=== PATIENT | male | born 1940 | race Caucasian/White ===

== ENCOUNTER → 2018-06-12 14:02 | Outpatient (CLI) | payer MEDICARE, SELFPAY ==
--- NOTE | 2018-06-12 14:10 | RAD_ITS ---
STUDY: X-RAY - ABDOMEN/PELVIS REASON FOR EXAM: Male, 78 years old. Reported history of kidney stone TECHNIQUE: Two AP supine views of the abdomen and pelvis. COMPARISON: None. FINDINGS: There are fibrotic changes in the lung bases. There is an unremarkable bowel gas pattern. There is no demonstrated free abdominal air. Asymmetric density of the left kidney as compared to the right suggesting retained contrast, possibly from obstruction. In the left hemipelvis adjacent to the urinary bladder, there is a 4.9 mm density that could represent a left UVJ stone. There are degenerative changes of lumbosacral spine. Operative changes of the bilateral femurs. There are metallic implants of the prostate gland. Vascular calcifications are noted. Cholecystectomy clips noted. RAD/Abdomen Single View IMPRESSION: 1. Possible left UVJ calculus causing obstruction (residual/delayed left renal contrast excretion from prior CT). Correlation with prior CT is recommended. Electronically Signed: Edinson Giordano MD at 8:44 EDT , Service support ,
== END ==
PROVIDERS: Family Provider Preventive Medicine Occupational Medicine; PCP Preventive Medicine Occupational Medicine; Referring Provider Nurse Practitioner Adult Health; Visit Provider Nurse Practitioner Adult Health
DX: R31.9 Hematuria, unspecified (principal)
CPT/HCPCS: 74018

== ENCOUNTER 2022-10-06 19:34 | Inpatient (IN) | payer MEDICARE, SELFPAY ==
[2022-10-06 19:35] VITALS: BP 129/74; PULSE 108; RESP 20; TEMP 36.6; O2SAT 95; BMI 28.8
--- NOTE | 2022-10-06 19:44 | EKG12_ITS ---
Test Reason : CP Blood Pressure : / mmHG Vent. Rate : 105 BPM Atrial Rate : 105 BPM P-R Int : 210 ms QRS Dur : 090 ms QT Int : 340 ms P-R-T Axes : 054 -32 113 degrees QTc Int : 449 ms Sinus tachycardia with 1st degree A-V block Left axis deviation Left ventricular hypertrophy with repolarization abnormality ( R in aVL , Cesar product ) Cannot rule out Septal infarct , age undetermined Abnormal ECG Confirmed by CORINE RUIZ, KOJO ([id number]), editorial specialist BRITTNI BACON ([id number]) on 10/08/2022 1:15:15 PM Referred By: XOCHILT Confirmed By:KOJO POOL MD
--- NOTE | 2022-10-06 19:52 | ED.VIS.CHEST ---
HPI History of Present Illness Chief Complaint: Chest Pain Informant: patient Onset/Context/Timing Onset: Today (Episode at 5:30 PM at rest and early in the morning when he went outside) Activity at onset: sudden Timing: Intermittent (First episode lasted a minute or 2. Second episode lasted 1.5 hours) Quality: Positive for Pressure Location: Substernal Current Severity: Gone Maximum Severity: Moderate Worsened By: Not Worsened By Movement of Arm, Movement of Torso, Eating, Palpation, Breathing or Coughing Relieved By: Nothing Associated Symptoms: Positive for - (Radiation to the left upper extremity); Negative for Nausea, Vomiting, Diaphoresis, Dyspnea, Cough, Fever, Lightheadedness, Acid Reflux or Palpitations Narrative Narrative: Patient is a 82-year-old male with history of coronary disease status post two-vessel bypass surgery in 1982 and placement of stent 1990 who presents with chest discomfort that occurred when he walked outside in the cold air that lasted 1 to 2 minutes and an episode that occurred at rest that lasted 1.5 hours. Described as a pressure sensation. The second episode was associated with radiation to left upper extremity. He does have history of diabetes, hypertension, hypercholesterolemia. He never smoked. He states his dad smoked, however. Patient has essentially no records at [facility]. Records from [place] were obtained. He had an echocardiogram on January 10, 2022. There is no results documented. The travel insurance agent is Dr. Shakeel Aragon. Patient had an outpatient CT performed August 31, 2021. 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 Prior Similar Symptoms: Yes and With Prior Angina Recent Illness/Hospitalization: No CVD Risk Factors: Positive for Hypertension, Diabetes and Hypercholesterolemia; Negative for Family History 1' </=55 or Smoking PE Risk Factors: Negative for Recent Travel/Surgery, Recent Immobilization, Prior DVT or PE, Cancer or OCP + Smoking + >/=35 TAD Risk Factors: Positive for Hypertension; Negative for Marfan's Syndrome or Family History [facility] Medical History (Updated 10/06/22 @ 22:45 by Tanya Yang) Diabetes Diabetes type I Hypertension Kidney stones TIA (transient ischemic attack) Home Medications allopurinol 300 mg tablet 300 mg PO QHS 10/06/22 [History Last Taken Unknown] amiodarone 200 mg tablet 200 mg PO DAILY 10/06/22 [History Last Taken Unknown] amlodipine 10 mg tablet 10 mg PO DAILY 10/06/22 [History Last Taken Unknown] aspirin 81 mg capsule 81 mg PO DAILY 10/06/22 [History Last Taken Unknown] cinnamon bark 500 mg capsule (Cinnamon) 500 mg PO BID 10/06/22 [History Last Taken Unknown] coenzyme Q10 100 mg capsule (CoQ-10) 200 mg PO DAILY 10/06/22 [History Last Taken Unknown] empagliflozin 10 mg tablet (Jardiance) 10 mg PO DAILY 10/06/22 [History Last Taken Unknown] metoprolol succinate 25 mg tablet,extended release 24 hr 25 mg PO DAILY 10/06/22 [History Last Taken Unknown] multivitamin 1 tab PO DAILY 10/06/22 [History Last Taken Unknown] niacin 500 mg capsule 500 mg PO DAILY 10/06/22 [History Last Taken Unknown] omega-3 fatty acids 1,000 mg PO BID 10/06/22 [History Last Taken Unknown] red yeast rice 600 mg tablet 600 mg PO BID 10/06/22 [History Last Taken Unknown] spironolactone 50 mg tablet 50 mg PO DAILY 10/06/22 [History Last Taken Unknown] warfarin 4 mg tablet 4 mg PO QHS 10/06/22 [History Last Taken Unknown] Allergy/AdvReac Type Severity Reaction Status Date / Time prochlorperazine Allergy Upset Verified 10/06/22 19:44 [From Compazine] Stomach Surgical History (Updated 10/06/22 @ 22:45 by Tanya Yang) History of cholecystectomy History of coronary artery stent placement Hx of CABG Stented coronary artery Social History (Updated 10/06/22 @ 19:[address] Michel Recinos MD) household members: none Smoking Status: Never smoker substance use type: does not use ROS ROS ED Constitutional Constitutional ED: Denies chills, fever(s), subjective, sweats or weight loss Eyes Eyes: Reports none; Denies blurry vision or change in vision ENT ENT ED: Denies ear pain, rhinorrhea or sore throat Cardiovascular Cardiovascular: Reports as per HPI; Denies orthopnea or paroxysmal nocturnal dyspnea Respiratory/Chest Respiratory/Chest: Denies cough, dyspnea, dyspnea on exertion, orthopnea or paroxysmal nocturnal dyspnea Gastrointestinal Gastrointestinal: Denies abdominal pain, melena, nausea or vomiting Genitourinary Genitourinary ED: Denies dysuria or urinary frequency Musculoskeletal Musculoskeletal: Denies arthralgias, back pain, myalgias or neck pain Integumentary Denies rash Neurologic Neurologic: Denies headache(s), paresthesias or weakness Endocrine Endocrinology: Denies cold intolerance, heat intolerance, polydipsia or polyuria Hematologic/Lymphatic Hematologic/Lymphatic: Denies easy bleeding or easy bruising EXAM Physical Exam Const Vital Signs: 10/06/22 19:35 10/06/22 19:39 10/06/22 20:28 Temperature 97.8 F Temperature Source Temporal Pulse Rate 108 H Respiratory Rate 20 H Respiratory Effort Normal Blood Pressure 129/74 H Blood Pressure Mean 92 Pulse Ox 95 Oxygen Delivery Method Room Air Room Air 10/06/22 20:35 Temperature Temperature Source Pulse Rate 99 Respiratory Rate 17 Respiratory Effort Blood Pressure 119/75 Blood Pressure Mean 89 Pulse Ox 97 Oxygen Delivery Method Room Air Positive well nourished and well developed General Appearance ED: well developed and NAD; Negative for pallor HEENT Reports TM's clear and moist mucous membranes normocephalic and atraumatic Tympanic Membrane ED: Yes TM's clear Eyes PERRL and EOMs intact bilaterally General Eye ED: Negative for pale conjunctiva or scleral icterus Neck no lymphadenopathy, supple and no JVD Neck Narrative: No carotid bruit appreciated. Chest Wall inspection of chest normal and palpation of chest normal Resp normal respiratory effort and clear to auscultation bilaterally Cardio regular rate, regular rhythm, S1 normal heart sound and S2 normal heart sound; Negative for no murmurs Peripheral Pulses: pulses 2+ throughout GI normal to inspection, nondistended, normoactive bowel sounds, soft to palpation, non-tender, non-distended and no masses; Negative for hepatosplenomegaly GI Narrative: There is no pulsatile or palpable mass. There is no relief. Back/Spine no CVA tenderness Extremity Negative for normal to inspection Extremity Narrative: Venous stasis dermatitis with bilateral pitting edema and stigmata of PAD General Extremety ED: Yes edema General Extremity: edema Neuro oriented x3, CN's II-XII intact bilaterally and no sensory deficits noted Sensorium / Orientation: awake Psych mental status grossly normal Skin no rashes or lesions noted and no wounds General Skin Exam: Negative for jaundice or pallor Heart Score History: Moderately Suspicious ECG: Nonspecific Repolarization Age: >/= 65 years Risk Factors: >/= 3 Risk Factors or History of CAD Troponin: >1 - <3 Normal Limit Score: 7 MDM MDM MDM Narrative Medical decision making narrative: Patient presents with chest pain differential is cardiac versus noncardiac. Noncardiac would include biliary, esophagitis/gastritis, doubt pulmonary embolus since intermittent. This may also represent pulmonary disease. 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 And patient has known coronary disease with two-vessel bypass surgery and placement of stent in the remote past. Labs from outside facility were reviewed. Approximately 6 months ago his renal function was normal. Patient was treated with aspirin. Patient's heart score is 7. Lab Data Attestation: I reviewed the patient's lab results. Lab results narrative: Electrolyte panel is remarked for creatinine of 1.31 with a GFR 55. Blood sugar is 289 with a normal CO2 anion gap. First troponin is 131 which is abnormal. Second troponin is markedly elevated. Labs: Laboratory Results - last 24 hr 10/06/22 10/06/22 10/06/22 19:55 19:55 19:55 WBC 15.6 H RBC 4.28 L Hgb 13.9 Hct 40.2 MCV 93.9 MCH 32.5 H MCHC 34.6 RDW Std Deviation 59.0 H RDW Coeff of Aide 17.4 H Plt Count 185 MPV 11.0 Immature Gran % (Auto) 2.300 H Neut % (Auto) 89.1 H Lymph % (Auto) 3.2 L [place] % (Auto) 5.0 Eos % (Auto) 0.1 Baso % (Auto) 0.3 Absolute Neuts (auto) 13.9 H Absolute Lymphs (auto) 0.50 L Nucleated RBC % 0 Differential Comment SEE COMMENT Diff Path Review May foll Platelet Estimate ADEQUATE RBC Morphology N CHROM Anisocytosis RARE Macrocytosis RARE PT 22.5 H INR 2.0 Sodium 140 Potassium 3.8 Chloride 103 Carbon Dioxide 25.0 Anion Gap 12 BUN 26 H Creatinine 1.31 H Estim Creat Clear Calc 39.95 Est GFR (MDRD) Af Amer 67 Est GFR (MDRD) Non-Af 55 L BUN/Creatinine Ratio 19.8 Glucose 289 H Calcium 9.2 Troponin I High Sens 131 H* Radiography Chest X-Ray - ED: 1 View and Read by ED Physician (Single view portable chest x-ray reveals atelectasis left side. Cardiac size is within normal range. Perihilar regions unremarkable. There is no effusion. Osseous structures are unremarkable.) Diagnostic Testing: Clinical Impression(s) from Imaging Studies Chest X-Ray 10/06/22 20:09 IMPRESSION: Minimal left basilar airspace disease which may represent atelectasis or scar. Electronically Signed: Horacio Peterson MD at 20:26 EST , EKG Initial EKG: Attestation: I personally reviewed and interpreted this EKG as follows: Interpretation: Sinus Tachycardia (There is a first-degree AV block with OH interval 210 ms. Heart rate is 105. [place] to left. There is evidence of left ventricular hypertrophy. There is decreased anterior force. There is significant artifact. QRS durations 90 ms. QT duration 3 and 40 ms.) Critical Care Time Critical Care Time: Yes Critical care time (excluding procedures): 30-74 minutes (31), 75-104 minutes, Including time spent: (History, physical, documentation, review of prior records at [facility] and outside source), Discussing w/Patient &/or Family/Edger Machine Helper, Discussing w/Consultants and Arranging Admission or Transfer Discharge Plan Dx/Rx/DC Orders Clinical Impression: Non-ST elevated myocardial infarction, Sensation of chest pressure, Hypercholesterolemia, Elevated troponin I level, History of type 2 diabetes mellitus, History of hypertension, Acute renal insufficiency Disposition Disposition: Acute Care Hospital [facility] Discharge Date/Time: 10/06/22 22:00
[2022-10-06 20:08] LABS: Absolute Neutrophil Count 13.9 X10^3/uL (2.0-7.7); Basophil# 0.04 X10^3/uL; Basophil% 0.3 % (0-1); Eosinophil# 0.01 X10^3/uL; Eosinophils% 0.1 % (0-5); Hematocrit 40.2 % (40-54); Hemoglobin 13.9 g/dL (13.0-16.5); Lymphocyte % 3.2 % (19-41); Mean Corp Hgb Conc 34.6 g/dL (32-36); Mean Corpuscular Hgb 32.5 pg (27.0-32.0); Mean Corpuscular Volume 93.9 fL (80-94); Monocyte# 0.78 X10^3/uL; NRBC Flagged by Analyzer 0 % (0-5); Neutrophil # 13.87 X10^3/uL (2.7-7.7); Neutrophil % 89.1 % (47-70); POSITIVE DIFFERENTIAL YES; Platelet Count 185 K/mm3 (150-450); RBC Distribution Width CV 17.4 % (11.6-14.6); Red Blood Count 4.28 M/mm3 (4.6-6.2); White Blood Count 15.6 K/mm3 (4.4-11.0)
--- NOTE | 2022-10-06 20:09 | RAD_ITS ---
EXAM: XR CHEST, 1 VIEW CLINICAL INDICATION: chest pain TECHNIQUE: Frontal view of the chest. This report was created using [employer] report generation technology. COMPARISON: None. FINDINGS: LUNGS AND PLEURAL SPACES: There is minimal left basilar airspace disease. No pneumothorax. No effusion. HEART: Unremarkable. Cardiac silhouette not enlarged. MEDIASTINUM: Central airways and mediastinal contour are unremarkable. BONES/JOINTS: Median sternotomy wires are present. SOFT TISSUES: Unremarkable. RAD/Chest 1 View (Portable) IMPRESSION: Minimal left basilar airspace disease which may represent atelectasis or scar. Electronically Signed: Horacio Peterson MD at 20:26 EST ,
[2022-10-06 20:25] LABS: Anion Gap 12 (5-15); BUN 26 mg/dL (7-18); BUN/Creat Ratio 19.8 RATIO (10-20); Calcium,Total 9.2 mg/dL (8.5-10.1); Chloride 103 mmol/L (98-107); Creatinine, Serum 1.31 mg/dL (0.70-1.30); EST Glomerular Filtration Rate 55 mL/min (>60); Est Glom Filt Rate - Afr Amer 67 mL/min (>60); Estimated Creatinine Clearance 39.95 ml/min; Glucose 289 mg/dL (74-106); Potassium 3.8 mmol/L (3.5-5.1); Sodium Level 140 mmol/L (136-145); Troponin-I HS (w/2H Reflex) 131 pg/mL (3.0-78.0)
[2022-10-06] MEDS: Aspirin 81 MG TAB.CHEW 324 MG PO (20:30)
[2022-10-06 20:35] VITALS: BP 119/75; PULSE 99; RESP 17; O2SAT 97
--- NOTE | 2022-10-06 20:45 | ED.RN ---
[phone] RAKEL IMMEL FAMILY FRIEND CALL IN NEED ANYTHING
[2022-10-06 20:47] LABS: Differential Indicated SCAN CRITERIA MET
[2022-10-06 20:48] LABS: Platelet Estimate ADEQUATE (ADEQ)
--- NOTE | 2022-10-06 20:48 | PCM.HP.STD ---
[facility] - General General Date of Admission: 10/06/22 Date of Service: 10/06/22 Chief Complaint: Chest pain - 1 day HPI Narrative HARMONY GORMAN, is a 82 M who presents with the above. Patient has past medical history of 2-vessel CABG in 1982, follows with cardiology in [facility], type II DM, hyperlipidemia, paroxysmal atrial fibrillation, on Coumadin. Patient was in his usual state of health until about 5:30 PM on the day of admission when he had left substernal chest pain that was dull and radiated to his left arm. This lasted for an hour and half. He denied any nausea or vomiting or diaphoresis. He came to the emergency room at the urging of his friend. Initial vitals in the ED showed BP 129/74, heart rate 108, RR 20, Temp 97.8F, oxygen sat 95% on room air. WBC 15.6, with neutrophilia, hemoglobin 13.9, platelet count 185. INR is 2.0. Sodium 140, potassium 3.8, chloride 103, bicarbonate 25, BUN 26, creatinine 1.31, no previous to compare, glucose 289, initial troponin was 131 --->1614. Chest x-ray shows minimal left basilar airspace disease with pleural patient atelectasis or scarring. EKG showed normal sinus rhythm with T wave inversions in 1 and aVL, slight 2 mm elevation in V1-v2, v3. Patient denies any chest pain at the time of being seen [facility] Medical History Diabetes Diabetes type I Hypertension Kidney stones TIA (transient ischemic attack) Home Medications allopurinol 300 mg tablet 300 mg PO QHS 10/06/22 [History Last Taken Unknown] amlodipine 10 mg tablet 10 mg PO DAILY 10/06/22 [History Last Taken Unknown] aspirin 81 mg capsule 81 mg PO DAILY 10/06/22 [History Last Taken Unknown] cinnamon bark 500 mg capsule (Cinnamon) 500 mg PO BID 10/06/22 [History Last Taken Unknown] coenzyme Q10 100 mg capsule (CoQ-10) 200 mg PO DAILY 10/06/22 [History Last Taken Unknown] empagliflozin 10 mg tablet (Jardiance) 10 mg PO DAILY 10/06/22 [History Last Taken Unknown] metoprolol succinate 25 mg tablet,extended release 24 hr 25 mg PO DAILY 10/06/22 [History Last Taken Unknown] multivitamin 1 tab PO DAILY 10/06/22 [History Last Taken Unknown] niacin 500 mg capsule 500 mg PO DAILY 10/06/22 [History Last Taken Unknown] omega-3 fatty acids 1,000 mg PO BID 10/06/22 [History Last Taken Unknown] red yeast rice 600 mg tablet 600 mg PO BID 10/06/22 [History Last Taken Unknown] spironolactone 50 mg tablet 50 mg PO DAILY 10/06/22 [History Last Taken Unknown] warfarin 4 mg tablet 4 mg PO QHS 10/06/22 [History Last Taken Unknown] Allergy/AdvReac Type Severity Reaction Status Date / Time prochlorperazine Allergy Upset Verified 10/06/22 19:44 [From Compazine] Stomach Family History (Updated 10/07/22 @ 00:[address] Cris Gimenez MD) Mother Heart disease Father Arthritis Surgical History (Updated 10/07/22 @ 00:[address] Cris Gimenez MD) H/O lumpectomy History of cholecystectomy History of coronary artery stent placement Hx of CABG Status post hip hemiarthroplasty Stented coronary artery Social History (Updated 10/07/22 @ 00:[address] Cris Gimenez MD) household members: spouse and none Smoking Status: Never smoker alcohol intake: never substance use type: does not use ROS ROS Narrative Constitutional: Denies: Anorexia, Chills, Fever, Night Sweats, Weight Change Eyes: Denies: Blurred vision, Cataracts, Conjunctivae Inflammation, Pain, Redness, Vision Change HEENT: Denies: Difficulty Hearing, Difficulty Swallowing, Head Aches, Hearing Changes, Sinus Congestion, Sinus Drainage Cardiovascular: See HPI Respiratory: Denies: Cough, Shortness of breath at rest, Sputum production Gastrointestinal: Denies: Abdominal Pain, Nausea, Vomiting Genitourinary: Denies: Dysuria Musculoskeletal: Denies: Joint Pain, Joint stiffness, Joint swelling, Joint Tenderness Skin: Denies: Rash, Wounds Neurological: Denies: Numbness, Tingling, Focal weakness Vital Signs Vital Signs Vital Signs: 10/06/22 19:35 10/06/22 19:39 10/06/22 20:28 Temperature 97.8 F Temperature Source Temporal Pulse Rate 108 H Respiratory Rate 20 H Respiratory Effort Normal Blood Pressure 129/74 H Blood Pressure Mean 92 Pulse Ox 95 Oxygen Delivery Method Room Air Room Air 10/06/22 20:35 Temperature Temperature Source Pulse Rate 99 Respiratory Rate 17 Respiratory Effort Blood Pressure 119/75 Blood Pressure Mean 89 Pulse Ox 97 Oxygen Delivery Method Room Air Weight Weight: 83.5 kg Body Mass Index (BMI) 28.8 Physical Exam Narrative Physical exam: General: Alert, Oriented x3, Cooperative HEENT: Atraumatic Oral: Moist Mucosa Neck: Supple Lungs: Clear to auscultation Cardiovascular: HS I+II, regular, no murmurs Abdomen: Bowel Sounds Present, Soft, Non Tender Extremities: Bilateral pedal edema +1, left leg chronic with chronic venous stasis and scaling on the skin Skin: No rashes, No breakdown Neurological: Grossly intact Psych/Mental Status: Appropriate Results Lab / Micro Data Result Diagrams: 10/06/22 19:55 10/06/22 19:55 Labs: Laboratory Results - last 24 hr 10/06/22 19:55: WBC 15.6 H, RBC 4.28 L, Hgb 13.9, Hct 40.2, MCV 93.9, MCH 32.5 H, MCHC 34.6, RDW Std Deviation 59.0 H, RDW Coeff of Aide 17.4 H, Plt Count 185, MPV 11.0, Immature Gran % (Auto) 2.300 H, Neut % (Auto) 89.1 H, Lymph % (Auto) 3.2 L, [place] % (Auto) 5.0, Eos % (Auto) 0.1, Baso % (Auto) 0.3, Absolute Neuts (auto) 13.9 H, Absolute Lymphs (auto) 0.50 L, Nucleated RBC % 0 10/06/22 19:55: Sodium 140, Potassium 3.8, Chloride 103, Carbon Dioxide 25.0, Anion Gap 12, BUN 26 H, Creatinine 1.31 H, Estim Creat Clear Calc 39.95, Est GFR (MDRD) Af Amer 67, Est GFR (MDRD) Non-Af 55 L, BUN/Creatinine Ratio 19.8, Glucose 289 H, Calcium 9.2, Troponin I High Sens 131 H* Radiology Impression Chest X-Ray 10/06/22 20:09 IMPRESSION: Minimal left basilar airspace disease which may represent atelectasis or scar. Electronically Signed: Horacio Peterson MD at 20:26 EST , Assessment & Plan Assessment/Plan (1) Non-ST elevated myocardial infarction (non-STEMI): PLAN: Plan 1. Acute non-STEMI in a patient with history of CAD status post CABG, status post stent Admitting troponin went from 131?> 1614 Started on heparin drip, admit to PCU, monitor on telemetry, cardiology consult 2D echo, trend troponins, continue aspirin, statin, metoprolol 2. Paroxysmal atrial fibrillation, in normal sinus rhythm, INR is 2.0 Hold Coumadin, continue metoprolol 3. Type II DM, on metformin and Jardiance, will hold both Continue with blood glucose checks with insulin sliding scale 4. Hypertension, controlled, continue on metoprolol, amlodipine Hold spironolactone 5. DVT PPx- Heparin drip I discussed and explained in details the various types of CODE STATUS-full code, DNR CCA, DNR CC. Patient chose to be DNR-CCA, no intubation. Time spent discussing CODE STATUS 16 minutes Charges/Coding Visit Charges Inpatient E&M: 34204 Init Hosp L3 Procedures Hospitalists Procedures: 91854 Advncd Care Plan 30 Min
[2022-10-06 20:49] LABS: Anisocytosis RARE; Macrocytosis RARE; Red Cell Morphology N CHROM NORMAL (NORM C&C)
[2022-10-06 21:02] VITALS: BP 118/76; PULSE 99; RESP 18; TEMP 36.8; O2SAT 96
[2022-10-06 22:02] LABS: Reflex Troponin-HS? (from REC) Y
[2022-10-06 22:15] VITALS: BMI 27.5
[2022-10-06 22:24] VITALS: BP 129/88; PULSE 100; RESP 16; TEMP 36.9; O2SAT 95
[2022-10-06 23:04] LABS: Troponin-I HS 1614 pg/mL (3.0-78.0)
[2022-10-06 23:25] LABS: Prothrombin Time (Protime)PT. 22.5 SECONDS (11.7-14.9)
[2022-10-06 23:39] LABS: Partial Thromboplast Time 47.2 Seconds (24.1-36.2)
[2022-10-06] MEDS: HEPARIN/D5w 25,000 UNITS 25,000 UNITS/250 ML IV.SOLN. 9 UNITS CONT INF (23:48)
[2022-10-07 00:01] LABS: AST(SGOT) 25 U/L (15-37); Alanine Aminotransfer ALT/SGPT 15 U/L (16-61); Albumin, Serum 3.5 g/dL (3.2-5.0); Alkaline Phosphatase 81 U/L (45-117); Bilirubin, Direct 0.07 mg/dL (0.00-0.30); Protein, Total 7.5 g/dL (6.4-8.2)
--- NOTE | 2022-10-07 00:04 | ECHOD_ITS ---
Reason For Study: CHEST PAIN Procedure This was a 2D Doppler, Color Flow transthoracic echocardiogram. Exam performed portable in patient room. Left Ventricle Normal LV size. The estimated ejection fraction is 60 %. No evidence for diastolic dysfunction. No regional wall motion abnormalities noted. Right Ventricle Normal RV size. Normal systolic function. Atria Normal left atrium. Normal right atrium. No doppler evidence for ASD. Mitral Valve There is mild to moderate mitral annular calcification. Posterior leaflet mitral valve prolapse. There is no mitral valve stenosis. Trivial mitral valve insufficiency. Tricuspid Valve There is no tricuspid stenosis. Trivial tricuspid valve insufficiency. Unable to estimate RV systolic pressure due to insufficient tricuspid regurgitant envelope. Aortic Valve Moderate diffuse aortic valve thickening. Mild aortic stenosis. Trivial aortic valve insufficiency. Pulmonic Valve There is no pulmonic valvular stenosis. Trivial pulmonic valve insufficiency. Great Vessels Normal aortic root. Pericardium/Pleural No pericardial effusion. MMode/2D Measurements & Calculations LVIDd: 4.2 cm IVSd: 0.83 cm LVOT diam: 2.0 cm LVIDs: 2.9 cm LVPWd: 0.74 cm LVOT area: 3.3 cm2 RVDd: 4.1 cm FS: 31.3 % Ao root diam: 3.5 cm LAV(MOD-bp): 50.2 ml LVAd ap4: 32.8 cm2 LAV(MOD-bp) Indexed: 26.2 ml/m2 LVLd ap4: 8.5 cm LAV(MOD-sp2): 47.0 ml EDV(MOD-sp4): 103.2 ml LAV(MOD-sp4): 49.2 ml EDV(sp4-el): 107.9 ml LVAs ap4: 16.4 cm2 LVLs ap4: 7.1 cm ESV(MOD-sp4): 31.6 ml ESV(sp4-el): 32.5 ml EF(MOD-sp4): 69.4 % EF(sp4-el): 69.9 % SV(MOD-sp4): 71.6 ml SV(sp4-el): 75.4 ml LA A4 area: 19.4 cm2 LA dimension(2D): 4.1 cm RA A4 area: 16.8 cm2 Time Measurements MV dec time: 0.19 sec Doppler Measurements & Calculations MV E max eros: 55.8 cm/sec Lat Peak E' Eros: 9.1 cm/sec Med Peak E' Eros: 5.7 cm/sec MV A max eros: 90.2 cm/sec E/E' lat: 6.2 E/E' med: 9.8 MV E/A: 0.62 Ao V2 max: 263.6 cm/sec LV V1 max: 89.0 cm/sec SV(LVOT): 64.0 ml Ao max P.8 mmHg LV V1 max P.2 mmHg Ao V2 mean: 191.5 cm/sec LV V1 mean P.9 mmHg Ao mean P.2 mmHg LV V1 mean: 66.2 cm/sec Ao V2 VTI: 57.3 cm LV V1 VTI: 19.7 cm AV (velocity ratio): 0.34 NALINI(I,D): 1.1 cm2 NALINI(V,D): 1.1 cm2 PA V2 max: 84.8 cm/sec TR max eros: 251.7 cm/sec TR max P.4 mmHg ECHO/Echo Complete Interpretation Summary The estimated ejection fraction is 60 %. No evidence for diastolic dysfunction. Trivial mitral valve insufficiency. Moderate diffuse aortic valve thickening. Mild aortic stenosis. Trivial aortic valve insufficiency. Ordering Physician: Cris Gimenez Referring Physician: CARIN ENRIQUEZ Performed By: Taniya Graham RDCS
--- NOTE | 2022-10-07 00:08 | EKG12_ITS ---
Test Reason : AM EKG Blood Pressure : / mmHG Vent. Rate : 070 BPM Atrial Rate : 070 BPM P-R Int : 178 ms QRS Dur : 102 ms QT Int : 384 ms P-R-T Axes : 053 -31 085 degrees QTc Int : 414 ms Normal sinus rhythm Left axis deviation Left ventricular hypertrophy with repolarization abnormality ( R in aVL , [place] product ) Cannot rule out Septal infarct , age undetermined Abnormal ECG When compared with ECG of 06-OCT-2022 22:38, MANUAL COMPARISON REQUIRED, DATA IS UNCONFIRMED Confirmed by CORINE RUIZ, KOJO ([id number]), clinical editor BRITTNI BACON ([id number]) on 10/09/2022 9:05:20 AM Referred By: Confirmed By:KOJO POOL MD
[2022-10-07 03:00] VITALS: BP 137/86; PULSE 80; RESP 18; TEMP 36.6; O2SAT 94
[2022-10-07 03:05] LABS: Troponin-I HS 4464 pg/mL (3.0-78.0)
[2022-10-07 06:18] LABS: Absolute Lymphocyte Count 0.76 X10^3/uL (0.83-4.51); Absolute Neutrophil Count 13.1 X10^3/uL (2.0-7.7); Basophil# 0.04 X10^3/uL; Basophil% 0.3 % (0-1); Hematocrit 39.7 % (40-54); Hemoglobin 13.5 g/dL (13.0-16.5); Lymphocyte # 0.76 X10^3/ul (0.83-4.51); Mean Corpuscular Hgb 32.5 pg (27.0-32.0); Mean Corpuscular Volume 95.7 fL (80-94); Mean Platelet Vol. 11.5 fl (6.2-12.0); Monocyte# 0.91 X10^3/uL; NRBC Flagged by Analyzer 0 % (0-5); Neutrophil % 86.4 % (47-70); Platelet Count 191 K/mm3 (150-450); RBC Distribution Width CV 17.2 % (11.6-14.6); RBC Distribution Width SD 60.3 fl (35.1-43.9); Red Blood Count 4.15 M/mm3 (4.6-6.2); White Blood Count 15.2 K/mm3 (4.4-11.0)
[2022-10-07 06:53] LABS: Prothrombin Time (Protime)PT. 22.2 SECONDS (11.7-14.9)
[2022-10-07 06:55] LABS: Partial Thromboplast Time 60.4 Seconds (24.1-36.2)
[2022-10-07 07:00] LABS: ALB/GLOB Ratio 0.9 RATIO (0.9-2.4); AST(SGOT) 37 U/L (15-37); Alanine Aminotransfer ALT/SGPT 18 U/L (16-61); Albumin, Serum 3.3 g/dL (3.2-5.0); Alkaline Phosphatase 77 U/L (45-117); Anion Gap 8 (5-15); BUN 24 mg/dL (7-18); BUN/Creat Ratio 30.2 RATIO (10-20); Calcium,Total 8.7 mg/dL (8.5-10.1); Chloride 104 mmol/L (98-107); EST Glomerular Filtration Rate 99 mL/min (>60); Est Glom Filt Rate - Afr Amer 119 mL/min (>60); Estimated Creatinine Clearance 65.41 ml/min; Globulin 3.8 g/dL (2.2-4.2); Glucose 159 mg/dL (74-106); Potassium 3.8 mmol/L (3.5-5.1); Protein, Total 7.1 g/dL (6.4-8.2); Sodium Level 138 mmol/L (136-145)
[2022-10-07 08:07] VITALS: BP 131/79; PULSE 84; RESP 18; TEMP 36.9; O2SAT 96
[2022-10-07] MEDS: Multivitamins,Therapeutic Tablet 1 TABLET PO (08:11)
[2022-10-07] MEDS: Aspirin 81 MG TAB.CHEW PO (08:12)
[2022-10-07 09:00] VITALS: BP 107/76; PULSE 100; RESP 16; TEMP 36.8; O2SAT 96
--- NOTE | 2022-10-07 09:48 | PN.HOSP_ITS ---
Subjective Subjective Doing well, chest pain has resolved. No issues overnight Objective Data Objective Data Vital Signs: Vital Signs Temp Pulse Resp BP Pulse Ox O2 Del Method 98.4 F 84 18 131/79 H 96 Room Air 10/07/22 08:07 10/07/22 08:07 10/07/22 08:07 10/07/22 08:07 10/07/22 08:07 10/07/22 08:07 Oxygen Delivery Method Room Air Weight: 175 lb 14.862 oz Body Mass Index (BMI) 27.5 Lab / Micro Data Result Diagrams: 10/07/22 05:50 10/07/22 05:50 Labs: Laboratory Results - last 24 hr 10/06/22 19:55: WBC 15.6 H, RBC 4.28 L, Hgb 13.9, Hct 40.2, MCV 93.9, MCH 32.5 H , MCHC 34.6, RDW Std Deviation 59.0 H, RDW Coeff of Aide 17.4 H, Plt Count 185, MPV 11.0, Immature Gran % (Auto) 2.300 H, Neut % (Auto) 89.1 H, Lymph % (Auto) 3.2 L, [place] % (Auto) 5.0, Eos % (Auto) 0.1, Baso % (Auto) 0.3, Absolute Neuts (auto) 13.9 H, Absolute Lymphs (auto) 0.50 L, Nucleated RBC % 0, Differential Comment SEE COMMENT, Diff Path Review May foll, Platelet Estimate ADEQUATE, RBC Morphology N CHROM, Anisocytosis RARE, Macrocytosis RARE 10/06/22 19:55: Sodium 140, Potassium 3.8, Chloride 103, Carbon Dioxide 25.0, Anion Gap 12, BUN 26 H, Creatinine 1.31 H, Estim Creat Clear Calc 39.95, Est GFR (MDRD) Af Amer 67, Est GFR (MDRD) Non-Af 55 L, BUN/Creatinine Ratio 19.8, Glucose 289 H, Calcium 9.2, Troponin I High Sens 131 H* 10/06/22 19:55: PT 22.5 H, INR 2.0, APTT 47.2 H 10/06/22 19:55: B-Natriuretic Peptide 62.0 10/06/22 22:23: Troponin I High Sens 1614 H* 10/06/22 22:23: Total Bilirubin 0.20, Direct Bilirubin 0.07, AST 25, ALT 15 L, Alkaline Phosphatase 81, Total Protein 7.5, Albumin 3.5, Globulin 4.0 10/07/22 02:07: Troponin I High Sens 4464 H* 10/07/22 05:50: WBC 15.2 H, RBC 4.15 L, Hgb 13.5, Hct 39.7 L, MCV 95.7 H, MCH 32.5 H, MCHC 34.0, RDW Std Deviation 60.3 H, RDW Coeff of Aide 17.2 H, Plt Count 191, MPV 11.5, Immature Gran % (Auto) 2.300 H, Neut % (Auto) 86.4 H, Lymph % (Auto) 5.0 L, [place] % (Auto) 6.0, Eos % (Auto) 0.0, Baso % (Auto) 0.3, Absolute Neuts (auto) 13.1 H, Absolute Lymphs (auto) 0.76 L, Nucleated RBC % 0 10/07/22 05:50: Sodium 138, Potassium 3.8, Chloride 104, Carbon Dioxide 26.0, A nion Gap 8, BUN 24 H, Creatinine 0.80, Estim Creat Clear Calc 65.41, Est GFR (MDRD) Af Amer 119, Est GFR (MDRD) Non-Af 99, BUN/Creatinine Ratio 30.2 H, Glucose 159 H, Calcium 8.7, Total Bilirubin 0.30, AST 37, ALT 18, Alkaline Phos phatase 77, Total Protein 7.1, Albumin 3.3, Globulin 3.8, Albumin/Globulin Ratio 0.9 10/07/22 05:50: PT 22.2 H, INR 2.0, APTT 60.4 H Radiography Diagnostic Testing: Radiology Impression Chest X-Ray 10/06/22 20:09 IMPRESSION: Minimal left basilar airspace disease which may represent atelectasis or scar. Electronically Signed: Horacio Peterson MD at 20:26 EST , Physical Exam Narrative General: Alert, Oriented x3, Cooperative, No apparent distress HEENT: Atraumatic, PERRLA, EOMI, Normocephalic Oral: Moist Mucosa Neck: Supple, No JVD Lungs: Clear to auscultation, Normal air movement, No rhonchi, No wheeze, No rales Cardiovascular: Regular rate, Regular Rhythm, Normal S1, Normal S2, No murmurs Abdomen: Soft, Non Tender, Non-Distended, No Hepato-splenomegaly Extremities: Edema, Capillary Refill Less than 3 Seconds Skin: No rashes, No breakdown, left leg with chronic venous stasis Musculoskeletal: No Tenderness to Palpation of Joints or Extremities Neurological: Cranial nerves II-XII grossly intact, Motor Exam 5/5 strength throughout, Sensory exam intact to light touch and pain Psych/Mental Status: Normal Affect, Appropriate Assessment & Plan Assessment/Plan (1) Non-ST elevated myocardial infarction (non-STEMI): PLAN: Plan 1. Acute non-STEMI in a patient with history of CAD status post CABG and stent/A-fib/HTN HLD Admitting troponin went from 131?> 1614 Started on heparin drip, admit to PCU, monitor on telemetry, cardiology consult 2D echo, trend troponins, continue aspirin, statin, metoprolol We will hold Coumadin given potential for cardiac cath Hold Aldactone 2. DM2 We will hold metformin and Jardiance We will continue with insulin Accu-Cheks ACHS We will make adjustments as necessary DVT: Heparin drip Charges/Coding Visit Charges Inpatient E&M: 39528 Subs Hosp L2
[2022-10-07] MEDS: Empagliflozin 10 MG Tablet PO (10:38)
[2022-10-07 10:41] VITALS: BP 118/72; PULSE 90
[2022-10-07] MEDS: amLODIPine 10 MG Tablet PO (10:41)
[2022-10-07] MEDS: Metoprolol(XL)Succ 25 MG Tablet PO (10:41)
[2022-10-07] MEDS: 0.9% Saline Lock 10 ML Syringe IV (10:45)
--- NOTE | 2022-10-07 11:39 | PCM.CONS.C ---
Assessment & Plan Assessment/Plan (1) Non-ST elevated myocardial infarction (non-STEMI): PLAN: Agree with current management. We will also recommend adding Plavix. Coronary angiography tomorrow. Risks and benefits discussed with the patient. Patient is willing to proceed. HPI Consult Data Date of Consult: 10/07/22 HPI Narrative Reason for Consultation: Non-STEMI HPI Narrative: HARMONY GORMAN, is a 82 M who presents with retrosternal pressure-like chest pain that has since resolved. Patient has been admitted to the PCU for further management. He was found to have elevated troponin with the most recent 1 around 4400. Patient has history of coronary artery disease status post CABG in 1982 (two-vessel CABG) he apparently had a stent 8 years later. Patient follows with Dr. Aragon at [facility]. Review of systems: All systems reviewed. All system negative except that in HPI [facility] Medical History Diabetes Diabetes type I Hypertension Kidney stones TIA (transient ischemic attack) Home Medications allopurinol 300 mg tablet 300 mg PO QHS 10/06/22 [History Last Taken Unknown] amlodipine 10 mg tablet 10 mg PO DAILY 10/06/22 [History Last Taken Unknown] aspirin 81 mg capsule 81 mg PO DAILY 10/06/22 [History Last Taken Unknown] cinnamon bark 500 mg capsule (Cinnamon) 500 mg PO BID 10/06/22 [History Last Taken Unknown] coenzyme Q10 100 mg capsule (CoQ-10) 200 mg PO DAILY 10/06/22 [History Last Taken Unknown] empagliflozin 10 mg tablet (Jardiance) 10 mg PO DAILY 10/06/22 [History Last Taken Unknown] metoprolol succinate 25 mg tablet,extended release 24 hr 25 mg PO DAILY 10/06/22 [History Last Taken Unknown] multivitamin 1 tab PO DAILY 10/06/22 [History Last Taken Unknown] niacin 500 mg capsule 500 mg PO DAILY 10/06/22 [History Last Taken Unknown] omega-3 fatty acids 1,000 mg PO BID 10/06/22 [History Last Taken Unknown] red yeast rice 600 mg tablet 600 mg PO BID 10/06/22 [History Last Taken Unknown] spironolactone 50 mg tablet 50 mg PO DAILY 10/06/22 [History Last Taken Unknown] warfarin 4 mg tablet 4 mg PO QHS 10/06/22 [History Last Taken Unknown] Allergy/AdvReac Type Severity Reaction Status Date / Time prochlorperazine Allergy Upset Verified 10/06/22 19:44 [From Compazine] Stomach Family History (Updated 10/07/22 @ 00:[address] Cris Gimenez MD) Mother Heart disease Father Arthritis Surgical History (Updated 10/07/22 @ 00:[address] Cris Gimenez MD) H/O lumpectomy History of cholecystectomy History of coronary artery stent placement Hx of CABG Status post hip hemiarthroplasty Stented coronary artery Social History (Updated 10/07/22 @ 00:[address] Cris Gimenez MD) household members: spouse and none Smoking Status: Never smoker alcohol intake: never substance use type: does not use Physical Exam Const alert and oriented x3 HEENT normocephalic Eyes no scleral icterus Resp normal respiratory effort Cardio regular rate Psych mental status grossly normal Risk Stratification Risk Stratification Applicable: No Charges/Coding Visit Charges Inpatient E&M: 21421 Init Hosp L2 Objective Data Vital Signs: Vital Signs Temp Pulse Resp BP Pulse Ox O2 Del Method 98.4 F 90 18 118/72 96 Room Air 10/07/22 08:07 10/07/22 10:41 10/07/22 08:07 10/07/22 10:41 10/07/22 08:07 10/07/22 08:07 Oxygen Delivery Method Room Air Weight: 175 lb 14.862 oz Body Mass Index (BMI) 27.5 Lab / Micro Data Result Diagrams: 10/07/22 05:50 10/07/22 05:50 Labs: Laboratory Results - last 24 hr 10/06/22 19:55: WBC 15.6 H, RBC 4.28 L, Hgb 13.9, Hct 40.2, MCV 93.9, MCH 32.5 H, MCHC 34.6, RDW Std Deviation 59.0 H, RDW Coeff of Aide 17.4 H, Plt Count 185, MPV 11.0, Immature Gran % (Auto) 2.300 H, Neut % (Auto) 89.1 H, Lymph % (Auto) 3.2 L, [place] % (Auto) 5.0, Eos % (Auto) 0.1, Baso % (Auto) 0.3, Absolute Neuts (auto) 13.9 H, Absolute Lymphs (auto) 0.50 L, Nucleated RBC % 0, Differential Comment SEE COMMENT, Diff Path Review May foll, Platelet Estimate ADEQUATE, RBC Morphology N CHROM, Anisocytosis RARE, Macrocytosis RARE 10/06/22 19:55: Sodium 140, Potassium 3.8, Chloride 103, Carbon Dioxide 25.0, Anion Gap 12, BUN 26 H, Creatinine 1.31 H, Estim Creat Clear Calc 39.95, Est GFR (MDRD) Af Amer 67, Est GFR (MDRD) Non-Af 55 L, BUN/Creatinine Ratio 19.8, Glucose 289 H, Calcium 9.2, Troponin I High Sens 131 H* 10/06/22 19:55: PT 22.5 H, INR 2.0, APTT 47.2 H 10/06/22 19:55: B-Natriuretic Peptide 62.0 10/06/22 22:23: Troponin I High Sens 1614 H* 10/06/22 22:23: Total Bilirubin 0.20, Direct Bilirubin 0.07, AST 25, ALT 15 L, Alkaline Phosphatase 81, Total Protein 7.5, Albumin 3.5, Globulin 4.0 10/07/22 02:07: Troponin I High Sens 4464 H* 10/07/22 05:50: WBC 15.2 H, RBC 4.15 L, Hgb 13.5, Hct 39.7 L, MCV 95.7 H, MCH 32.5 H, MCHC 34.0, RDW Std Deviation 60.3 H, RDW Coeff of Aide 17.2 H, Plt Count 191, MPV 11.5, Immature Gran % (Auto) 2.300 H, Neut % (Auto) 86.4 H, Lymph % (Auto) 5.0 L, [place] % (Auto) 6.0, Eos % (Auto) 0.0, Baso % (Auto) 0.3, Absolute Neuts (auto) 13.1 H, Absolute Lymphs (auto) 0.76 L, Nucleated RBC % 0 10/07/22 05:50: Sodium 138, Potassium 3.8, Chloride 104, Carbon Dioxide 26.0, Anion Gap 8, BUN 24 H, Creatinine 0.80, Estim Creat Clear Calc 65.41, Est GFR (MDRD) Af Amer 119, Est GFR (MDRD) Non-Af 99, BUN/Creatinine Ratio 30.2 H, Glucose 159 H, Calcium 8.7, Total Bilirubin 0.30, AST 37, ALT 18, Alkaline Phosphatase 77, Total Protein 7.1, Albumin 3.3, Globulin 3.8, Albumin/Globulin Ratio 0.9 10/07/22 05:50: PT 22.2 H, INR 2.0, APTT 60.4 H Cardiology Labs/Tests 10/06/22 19:55: WBC 15.6 H, RBC 4.28 L, Hgb 13.9, Hct 40.2, MCV 93.9, MCH 32.5 H, MCHC 34.6, Plt Count 185, MPV 11.0, Immature Gran % (Auto) 2.300 H, Neut % (Auto) 89.1 H, Lymph % (Auto) 3.2 L, [place] % (Auto) 5.0, Eos % (Auto) 0.1, Baso % (Auto) 0.3, Absolute Neuts (auto) 13.9 H, Nucleated RBC % 0 10/06/22 19:55: Sodium 140, Potassium 3.8, Chloride 103, Carbon Dioxide 25.0, Anion Gap 12, BUN 26 H, Creatinine 1.31 H, Est GFR (MDRD) Af Amer 67, Est GFR (MDRD) Non-Af 55 L, BUN/Creatinine Ratio 19.8, Glucose 289 H, Calcium 9.2 10/06/22 19:55: PT 22.5 H, INR 2.0, APTT 47.2 H 10/06/22 19:55: B-Natriuretic Peptide 62.0 10/06/22 22:23: Total Bilirubin 0.20, Direct Bilirubin 0.07 10/07/22 05:50: WBC 15.2 H, RBC 4.15 L, Hgb 13.5, Hct 39.7 L, MCV 95.7 H, MCH 32.5 H, MCHC 34.0, Plt Count 191, MPV 11.5, Immature Gran % (Auto) 2.300 H, Neut % (Auto) 86.4 H, Lymph % (Auto) 5.0 L, [place] % (Auto) 6.0, Eos % (Auto) 0.0, Baso % (Auto) 0.3, Absolute Neuts (auto) 13.1 H, Nucleated RBC % 0 10/07/22 05:50: Sodium 138, Potassium 3.8, Chloride 104, Carbon Dioxide 26.0, Anion Gap 8, BUN 24 H, Creatinine 0.80, Est GFR (MDRD) Af Amer 119, Est GFR (MDRD) Non-Af 99, BUN/Creatinine Ratio 30.2 H, Glucose 159 H, Calcium 8.7, Total Bilirubin 0.30 10/07/22 05:50: PT 22.2 H, INR 2.0, APTT 60.4 H Rhythm: EKG: ECHO: Stress Test: Cardiac Cath: PCI: CT Surgery: Holter monitor: EPS: PPM: CXR: Chest CT Scan: Radiography Diagnostic Testing: Radiology Impression Chest X-Ray 10/06/22 20:09 IMPRESSION: Minimal left basilar airspace disease which may represent atelectasis or scar. Electronically Signed: Horacio Peterson MD at 20:26 EST ,
[2022-10-07 11:41] LABS: Bedside Glucose 237 mg/dL (74-106)
[2022-10-07 12:10] LABS: Partial Thromboplast Time 55.6 Seconds (24.1-36.2)
[2022-10-07] MEDS: TICAGRELOR 90 MG TABLET 180 MG PO (12:43)
[2022-10-07 14:21] VITALS: BP 108/74; PULSE 102; RESP 18; TEMP 36.7; O2SAT 94
[2022-10-07 20:30] VITALS: BP 98/68; PULSE 64; RESP 18; TEMP 36.4; O2SAT 95
[2022-10-07] MEDS: TICAGRELOR 90 MG TABLET PO (21:39)
[2022-10-07] MEDS: Allopurinol 300 MG Tablet PO (21:39)
[2022-10-07] MEDS: HEPARIN/D5w 25,000 UNITS 25,000 UNITS/250 ML IV.SOLN. 10 UNITS CONT INF (23:56)
[2022-10-08] VITALS (13 sets, daily range): BP systolic 121–151; BP diastolic 76–92; PULSE 69–91; RESP 16–18; TEMP 36.7–36.9; O2SAT 92–99
--- NOTE | 2022-10-08 05:00 | EKG12_ITS ---
Test Reason : CP ADMISSION Blood Pressure : / mmHG Vent. Rate : 093 BPM Atrial Rate : 093 BPM P-R Int : 300 ms QRS Dur : 092 ms QT Int : 352 ms P-R-T Axes : 051 -35 105 degrees QTc Int : 437 ms Sinus rhythm with 1st degree A-V block with Premature atrial complexes with Aberrant conduction Left axis deviation Left ventricular hypertrophy with repolarization abnormality ( R in aVL , Cesar product ) Cannot rule out Septal infarct , age undetermined Abnormal ECG When compared with ECG of 06-OCT-2022 19:48, MANUAL COMPARISON REQUIRED, DATA IS UNCONFIRMED Confirmed by CORINE RUIZ, KOJO ([id number]), editor dictionary BRITTNI BACON ([id number]) on 10/09/2022 9:07:48 AM Referred By: Confirmed By:KOJO POOL MD
[2022-10-08] MEDS: amLODIPine 10 MG Tablet PO (05:28)
[2022-10-08] MEDS: Metoprolol(XL)Succ 25 MG Tablet PO (05:28)
[2022-10-08] MEDS: Aspirin 81 MG TAB.CHEW PO (05:28)
[2022-10-08 06:00] LABS: Bedside Glucose 134 mg/dL (74-106)
[2022-10-08 06:46] LABS: Absolute Lymphocyte Count 0.98 X10^3/uL (0.83-4.51); Absolute Neutrophil Count 12.2 X10^3/uL (2.0-7.7); Basophil# 0.05 X10^3/uL; Basophil% 0.3 % (0-1); Hematocrit 40.4 % (40-54); Hemoglobin 13.9 g/dL (13.0-16.5); Lymphocyte # 0.98 X10^3/ul (0.83-4.51); Lymphocyte % 6.5 % (19-41); Mean Corp Hgb Conc 34.4 g/dL (32-36); Mean Corpuscular Hgb 32.5 pg (27.0-32.0); Mean Corpuscular Volume 94.4 fL (80-94); Mean Platelet Vol. 11.5 fl (6.2-12.0); Monocyte# 1.57 X10^3/uL; Monocyte% 10.4 % (0-10); NRBC Flagged by Analyzer 0 % (0-5); Neutrophil # 12.22 X10^3/uL (2.7-7.7); Neutrophil % 80.6 % (47-70); POSITIVE DIFFERENTIAL YES; Platelet Count 192 K/mm3 (150-450); RBC Distribution Width CV 17.8 % (11.6-14.6); RBC Distribution Width SD 61.3 fl (35.1-43.9); Red Blood Count 4.28 M/mm3 (4.6-6.2); White Blood Count 15.2 K/mm3 (4.4-11.0)
[2022-10-08 07:14] LABS: Anion Gap 10 (5-15); BUN 29 mg/dL (7-18); BUN/Creat Ratio 36.3 RATIO (10-20); Calcium,Total 8.7 mg/dL (8.5-10.1); Chloride 103 mmol/L (98-107); EST Glomerular Filtration Rate 98 mL/min (>60); Est Glom Filt Rate - Afr Amer 119 mL/min (>60); Estimated Creatinine Clearance 65.41 ml/min; Glucose 137 mg/dL (74-106); Sodium Level 138 mmol/L (136-145)
[2022-10-08 07:29] LABS: International Normalized Ratio 1.5; Prothrombin Time (Protime)PT. 17.9 SECONDS (11.7-14.9)
[2022-10-08 07:36] LABS: Differential Indicated SCAN CRITERIA MET
[2022-10-08 07:42] LABS: Anisocytosis 1+
[2022-10-08 09:06] LABS: Partial Thromboplast Time 53.5 Seconds (24.1-36.2)
[2022-10-08] MEDS: TICAGRELOR 90 MG TABLET PO ×2 (09:39→21:34)
[2022-10-08] MEDS: 0.9% Saline Lock 10 ML Syringe IV (09:39)
--- NOTE | 2022-10-08 09:40 | NURSING ---
called report to Eliezer CONTEH in prosthetic lab technician
--- NOTE | 2022-10-08 10:19 | PN.HOSP_ITS ---
Subjective Subjective Patient seen and examined. HE had no complaints this morning and had an uneventful night. Review of systems was otherwise negative. He is for cardiac cath this morning. Objective Data Objective Data Vital Signs: Vital Signs Temp Pulse Resp BP Pulse Ox O2 Del Method 98.5 F 78 18 132/76 H 94 Room Air 10/08/22 05:26 10/08/22 05:28 10/08/22 05:26 10/08/22 05:26 10/08/22 05:26 10/08/22 08:21 Oxygen Delivery Method Room Air Weight: 175 lb 14.862 oz Body Mass Index (BMI) 27.5 Intake & Output: Intake and Output for Last 24 Hours 10/06/22 10/07/22 10/08/22 23:59 23:59 23:59 Intake Total 1700.82 / 1940.82 337.68 / 337.68 Balance 1700.82 / 1940.82 337.68 / 337.68 Lab / Micro Data Result Diagrams: 10/08/22 06:05 10/08/22 06:05 Labs: Laboratory Results - last 24 hr 10/07/22 10:47: POC Glucose 237 H 10/07/22 11:55: APTT 55.6 H 10/07/22 19:22: APTT 53.0 H 10/08/22 01:50: APTT 62.0 H 10/08/22 05:43: POC Glucose 134 H 10/08/22 06:05: WBC 15.2 H, RBC 4.28 L, Hgb 13.9, Hct 40.4, MCV 94.4 H, MCH 32.5 H, MCHC 34.4, RDW Std Deviation 61.3 H, RDW Coeff of Aide 17.8 H, Plt Count 192, MPV 11.5, Immature Gran % (Auto) 2.200 H, Neut % (Auto) 80.6 H, Lymph % (Auto) 6.5 L, [place] % (Auto) 10.4 H, Eos % (Auto) 0.0, Baso % (Auto) 0.3, Absolute Neuts (auto) 12.2 H, Absolute Lymphs (auto) 0.98, Nucleated RBC % 0, Diff Path Review May foll, Anisocytosis 1+ 10/08/22 06:05: PT 17.9 H, INR 1.5 10/08/22 06:05: Sodium 138, Potassium 4.0, Chloride 103, Carbon Dioxide 25.0, Anion Gap 10, BUN 29 H, Creatinine 0.80, Estim Creat Clear Calc 65.41, Est GFR (MDRD) Af Amer 119, Est GFR (MDRD) Non-Af 98, BUN/Creatinine Ratio 36.3 H, Glucose 137 H, Calcium 8.7 10/08/22 08:35: APTT 53.5 H Physical Exam Const alert, oriented x3 and no apparent distress HEENT head/scalp atraumatic, moist oral mucous membranes and oropharynx normal Head and Scalp: normocephalic Mouth: oral and palatal mucosa normal and dry mucous membranes Eyes PERRL, EOMs intact bilaterally and conjunctivae normal Neck no lymphadenopathy, supple and no JVD Resp normal respiratory effort, no retractions, no use of accessory muscles and clear to auscultation bilaterally Cardio regular rate, regular rhythm, S1 normal heart sound, S2 normal heart sound and no murmurs GI normal to inspection, nondistended, normoactive bowel sounds, soft to palpation, non-tender and non-distended Extremity normal to inspection, full ROM and no clubbing, cyanosis or edema Neuro oriented x3, CN's II-XII intact bilaterally, moves all extremities and no focal motor deficits Sensorium / Orientation: awake and alert Motor Exam: strength 5/5 throughout Psych affect normal Assessment & Plan Assessment/Plan (1) Non-ST elevated myocardial infarction (non-STEMI): PLAN: Plan #Nonstemi * does have a history of CAD s/p CABG and stents * currenlty on heparin drip * on aspirin, statin and metoprolol. * cardiology on board. For cardiac cath today * 2D echo ordered * #CAD s/p CABG: on aspirin, high intensity statin and metoprolol #Afib: currently rate controlled. Coumadin on hold as he is going for cardiac cath. On metoprolol #Type 2 diabetes mellitus * metformin and Jardiance on hold * ISS> Accuchecks ACHS * check A1c * #Hypertension: on metoprolol and amlodipine. Aldactone currently held DVT prophylaxis: already on heparin drip Charges/Coding Visit Charges Inpatient E&M: 98639 Subs Hosp L2
[2022-10-08 11:15] LABS: Hemoglobin A1c 6.5 % (3.8-5.6)
--- NOTE | 2022-10-08 14:11 | CRPHASE1 ---
Patient Communication Former Patient:: Phase I Guide to Cardiac Rehab Given to Patient:: Yes Cardiac Rehab Facility Choice List Given to Patient:: Yes Correctional Officer Captain:: Jessica Snyder Cardiac Rehabilitation Info Cardiac Rehabilitation Program Information: Cardiac Rehab The cardiac rehab team at [facility] consists of highly skilled exercise physiologists, nurses, respiratory therapists and physicians working together with you. Our purpose is to help you have a full recovery and achieve the goals you set for yourself. Over the years many of our patients have returned to activities they assumed they would never do again! We can help restore your confidence and motivation to make lifestyle changes that can have a significant impact on your health and quality of life! We can help answer questions and concerns you may have about exercise, lifestyle, medications, diet, stress and anxiety which are common following a hospitalization. WE monitor ECG and vital signs during exercise and discuss your progress with you and report to your physician(s). Cardiac Rehab is proven to help reduce readmissions, improve functional capacity and lower recurrence of problems with your heart. Our Cardiac Rehab program is Certified by the [place] [employer] Pulmonary [employer] (AACVPR) and Accredited by the [place] [employer] through our [facility]. You can contact us at . We invite you to call us with your questions or to get started in our program. If you have other questions or concerns be sure to ask your physician/provider during your follow-up visit. WE look forward to seeing you!
--- NOTE | 2022-10-08 14:12 | CRPH1.INSTRU ---
General Education CAD and cardiac anatomy and function:: Patient communicates acknowledgment Explanation of diagnoses and procedures:: Patient communicates acknowledgment Sign/Symptoms of CT:: Patient communicates acknowledgment Antiplatelet therapy: Patient communicates acknowledgment Proper use of NTG-SL: Patient communicates acknowledgment Emergency procedures and activation of EMS: Patient communicates acknowledgment Compliance of all prescribed medications: Patient communicates acknowledgment Smoking Patient Nicotine/Smoking Risk Factors Are:: Never smoked Recommendations Include:: Second-hand smoke recommendation Nicotine/Smoking Response Code:: Patient communicates acknowledgment Dyslipidemia Recommendations Include:: Lipid profile not available Dyslipidemia Response Code:: Patient communicates acknowledgment Overweight/Obesity Patient Overweight/Obesity Risk Factors Are:: BMI Normal [24-29 & > 65 years old] Recommendations Include:: Exercise 5-7 times/week Overweight/Obesity:: Patient communicates acknowledgment Hypertension Recommendations Include:: BP <130/80 if diabetic Hypertension:: Patient communicates acknowledgment Heart Disease Patient Heart Disease Risk Factors Are:: Previous cardiac event Recommendations Include:: Educated family members of their risk Heart Disease Response Code:: Patient communicates acknowledgment Diabetes Patient Diabetes Risk Factors Are:: Elevated blood sugars Recommendations Include:: Maintain fasting blood sugars 70-110 md/dL, Maintain HgbA1c of 6% or less, Monitor blood sugar as prescribed, Diabetic dietary guidelines Diabetes:: Patient communicates acknowledgment Metabolic Syndrome Patient Metabolic Syndrome Risk Factors Are [3 of 5]:: Hypertension Recommendations Include:: Does not meet criteria Metabolic Syndrome Response Code:: Patient communicates acknowledgment Sedentary Patient Sedentary Risk Factors Are:: Lack of regular exercise Recommendations Include:: Benefits of regular exercise, Monitored Outpatient Cardiac Rehab Sedentary Response Code:: Patient communicates acknowledgment Stress Recommendations Include:: Identification of stressors, and assessment of coping skills, Stress management techniques Stress Response Code:: Patient communicates acknowledgment
--- NOTE | 2022-10-08 14:58 | CL.I_ITS ---
Patient Name: HARMONY GORMAN Study Date: 10/08/2022 Performing: Micheal Snyder MD Ht: 67 inches 170.18 cm : 1940 Wt: 175.93 lbs 79.8 kg Age: 82 Gender: male BSA: 1.91 PROCEDURE(S) PERFORMED DC04-(63644)LHC/COR/CABG IC12-([id number])JEWEL W/WO PTCA, SINGLE CORONARY ARTERY CLINICAL PROFILE AND CO-MORBIDITIES Indications: ACS <= 24 hrs Heart Failure: None Stress/Imaging Stress/Image Study Performed: No CAD Presentations: Non-STEMI. Symptom onset Date/Time: 10/07/22 Time Not Available CONCLUSIONS CAD as described. Patent 2/2 bypass grafts. Successful PCI of RPDA with JEWEL. RECOMMENDATIONS DESCRIPTION OF PROCEDURE The patient arrived to the procedure lab. The risks and benefits of the procedure as well as a full description of our services here and lack of surgical backup were fully explained to the patient and/or their significant other prior to the catheterization. The Timeout was completed, verifying the correct patient and procedure. The patient's procedural site was prepped and draped in the usual fashion. Local anesthetic was given subcutaneously to right groin region with Lidocaine 2%. Using a modified Seldinger technique, arterial access was obtained via the right femoral artery, with Micropuncture set. Left Coronary Artery selective angiography was performed in multiple views using a 5 Fr. JL4 catheter. Right Coronary Artery selective angiography was then performed in multiple views using a 5 Fr. JR4 catheter. Left internal mammary artery graft to the LAD selective angiography was performed in multiple views using a 5 Fr. IM catheter. Saphenous Vein graft to the OM 2 selective angiography was performed in multiple views using a 5 Fr. AL 1 catheterThe images were reviewed and options discussed. A decision was then made to proceed with an Intervention, IVUS or other adjunct procedure. Arterial sheath was exchanged for a 6 Fr Sheath. AL1 Guide catheter was inserted and engaged into the RCA. BMW [place] Guide wire was advanced to the RPDA. Whisper Guide catheter was inserted and engaged into the RPL Branch. Euphora 2.0 x 12 Balloon catheter was inserted. Euphora 1.5 x 12 Balloon catheter was inserted. Balloon catheter was advanced across lesion in the RPDA proximal PTCA balloon inflated at 14 atms for 14 secs. PTCA balloon inflated at 14 atms for 13 secs. PTCA balloon inflated at 14 atms for 15 secs. PTCA balloon inflated at 14 atms for 20 secs. PTCA balloon inflated at 14 atms for 12 secs. PTCA balloon inflated at 14 atms for 12 secs. Euphora 2.0 x 12 Balloon catheter was reinserted Balloon catheter was advanced across lesion in the RPDA, proximal. PTCA balloon inflated at 10 atms for 19 secs. PTCA balloon inflated at 12 atms for 26 secs. Emerge Push 1.20 x 15 Balloon catheter was inserted on Whisper Wire. Resolute Chavo 2.25 x 8 Drug Eluting stent was inserted on BMW Wire. Drug Eluting stent was removed intact, failed to cross lesion NC Emerge 2.0 x 12 Balloon catheter was inserted. Balloon catheter was advanced across lesion in the RPDA proximal PTCA balloon inflated at 20 atms for 41 secs. Orsiro 2.25 x 9 Drug Eluting stent was inserted. Drug Eluting stent was advanced across the lesion in the RPDA proximal Angiogram performed pre stent deployment. NC Emerge 2.25 x 8 Balloon catheter was inserted. Balloon catheter was advanced across lesion in the RPDA proximal BMW [place] Guide wire was repositioned to the RPL Emerge Push 1.20 x 15 Balloon catheter was inserted. Contrast was injected through the sheath and the Right Iliac and Femoral artery were assessed for possible closure device. The arterial sheath was exchanged to a new 6fr standard sheath. Due to Preclose unable to insert.. The arterial sheath was sutured in place with heparinized normal saline under pressure. The arterial sheath was pulled and manual compression applied until hemostasis is achieved. CORONARY ANGIOGRAPHY DOMINANCE: Right Dominant LEFT MAIN: is occluded LEFT ANTERIOR DESCENDING ARTERY: RIGHT CORONARY ARTERY: MID RCA: 30 % Stenosis. RCA appears to have stents that are widely patent. RT PLV: 90 % Stenosis in the ostial portion and 95% stenosis in the proximal portion RT PDA: Proximal - 90 % Stenosis GRAFTS: COHEN graft to the Mid LAD is patent Saphenous Vein graft to the 2nd OM is patent. This fills the LCx. There is a 50% stenosis distal to the anastomosis. INTERVENTION INFORMATION LESION SITE: RT PDA (Proximal) Lesion Complexity: High/C, chronic total occlusion: No, lesion at bifurcation: Yes, thrombus present: No, lesion length: 11 mm, culprit lesion: Yes, Previously treated lesion: No Pre Stenosis: 90 % Pre intervention WILLIAM flow: 3 PROCEDURE: Drug Eluting Stent with pre and post dilatation The RPL lesion was crossed with a wire but even a 1.2 mm balloon would not cross into the vessel despite good support with an AL1 guide and guideliner inserted into the mid to distal RCA Post Stenosis: 0 % Post intervention WILLIAM flow: 3 Lesion Devices: Cordis 6 Fr AL1.0 100cm Guide Catheter Knott .014 190cm BMW [place] Straight Knott .014 190cm HT Whisper MS Straight Medtronic SC EUPHORA RX 2.0x12 BALLOON Medtronic SC EUPHORA RX 1.5x12 BALLOON [employer] [place] EMERGE MR 2.00x12 BALLOON [employer] Orsiro [place] MR JEWEL 2.25x9 [place] [employer] [place] EMERGE MR 2.25x08 BALLOON LESION SITE: RPL (1st) Lesion Devices: Cordis 6 Fr AL1.0 100cm Guide Catheter Knott .014 190cm BMW [place] Straight Knott .014 190cm HT Whisper MS Straight COMPLICATIONS No Complications PROCEDURE MEDICATIONS Fentanyl 50 mcg IV Versed 1 mg IV Oxygen: 2 L/min via nasal cannula Heparin 5000 unit(s) IV 10/08/2022 10:54:32 Heparin 1000 unit(s) IV 10/08/2022 11:15:45 Zofran 4 mg IV 10/08/2022 11:48:22 SUMMARY OF HEMODYNAMIC DATA Time AIR REST ECG 10:04:07 AO 142/80 (107) SA 10:25:11 ECG 12:34:38 Signed By Micheal Snyder MD On 10/08/2022 14:58:06 Micheal Snyder MD
--- NOTE | 2022-10-08 15:53 | CRPHASE1 ---
Patient Communication PHII Cardiac Rehab Discussed with Patient:: Yes Guide to Cardiac Rehab Given to Patient:: Yes Cardiac Rehab Facility Choice List Given to Patient:: Yes Choice Program [facility] CR PHII:: Communication Given to CR Choice Program Other:: Communication Given to CR Machine Molder Squeeze:: Micheal Snyder Refer Phase II Cardiac Rehab:: Yes Sessions:: 36 sessions - 3 days/wk, 12 weeks Cardiac Rehabilitation Info Cardiac Rehabilitation Program Information: Cardiac Rehab The cardiac rehab team at [facility] consists of highly skilled exercise physiologists, nurses, respiratory therapists and physicians working together with you. Our purpose is to help you have a full recovery and achieve the goals you set for yourself. Over the years many of our patients have returned to activities they assumed they would never do again! We can help restore your confidence and motivation to make lifestyle changes that can have a significant impact on your health and quality of life! We can help answer questions and concerns you may have about exercise, lifestyle, medications, diet, stress and anxiety which are common following a hospitalization. WE monitor ECG and vital signs during exercise and discuss your progress with you and report to your physician(s). Cardiac Rehab is proven to help reduce readmissions, improve functional capacity and lower recurrence of problems with your heart. Our Cardiac Rehab program is Certified by the [place] [employer] Pulmonary [employer] (AACVPR) and Accredited by the [employer] through our [facility]. You can contact us at . We invite you to call us with your questions or to get started in our program. If you have other questions or concerns be sure to ask your physician/provider during your follow-up visit. WE look forward to seeing you!
--- NOTE | 2022-10-08 15:55 | CRPH1.INSTRU ---
General Education CAD and cardiac anatomy and function:: Patient communicates acknowledgment Explanation of diagnoses and procedures:: Patient communicates acknowledgment Sign/Symptoms of PR:: Patient communicates acknowledgment Antiplatelet therapy: Patient communicates acknowledgment Proper use of NTG-SL: Patient communicates acknowledgment Emergency procedures and activation of EMS: Patient communicates acknowledgment Compliance of all prescribed medications: Patient communicates acknowledgment
--- NOTE | 2022-10-08 16:04 | CRPH1.INSTRU ---
General Education CAD and cardiac anatomy and function:: Patient communicates acknowledgment Explanation of diagnoses and procedures:: Patient communicates acknowledgment Sign/Symptoms of DC:: Patient communicates acknowledgment Antiplatelet therapy: Patient communicates acknowledgment Proper use of NTG-SL: Patient communicates acknowledgment Emergency procedures and activation of EMS: Patient communicates acknowledgment Compliance of all prescribed medications: Patient communicates acknowledgment Smoking Patient Nicotine/Smoking Risk Factors Are:: Never smoked Dyslipidemia Patient Dyslipidemia Risk Factors Are:: Total Cholesterol, Triglycerides, HDL, LDL Recommendations Include:: Lipid profile not available, Reviewed NCEP/ATP guidelines, Therapeutic Lifestyle Change dietary guidelines Dyslipidemia Response Code:: Patient communicates acknowledgment Overweight/Obesity Patient Overweight/Obesity Risk Factors Are:: Overweight = 26-29 Recommendations Include:: Weight loss of 5-10%, Reduced calorie diet, Exercise 5-7 times/week Overweight/Obesity:: Patient communicates acknowledgment Hypertension Recommendations Include:: BP <130/80 if diabetic, DASH dietary guidelines, Decrease/maintain normal body weight, Moderation of ETOH Hypertension:: Patient communicates acknowledgment Heart Disease Recommendations Include:: Educated family members of their risk Heart Disease Response Code:: Patient communicates acknowledgment Diabetes Patient Diabetes Risk Factors Are:: Elevated blood sugars, Post-op hyperglycemia Recommendations Include:: Maintain fasting blood sugars 70-110 md/dL, Maintain HgbA1c of 6% or less, Monitor blood sugar as prescribed, Diabetic dietary guidelines, Decrease/maintain body weight Diabetes:: Patient communicates acknowledgment Metabolic Syndrome Patient Metabolic Syndrome Risk Factors Are [3 of 5]:: Waist circumference > 35 [female] or 40 [male], High triglyceride >150, Hypertension Recommendations Include:: Patient is diabetic Metabolic Syndrome Response Code:: Patient communicates acknowledgment Sedentary Patient Sedentary Risk Factors Are:: Lack of regular exercise Recommendations Include:: Aerobic exercise 5-7 times/week for 20-30 minutes continuously, Benefits of regular exercise, Discussed home walking program, Monitored Outpatient Cardiac Rehab Sedentary Response Code:: Patient communicates acknowledgment Stress Patient Stress Risk Factors Are:: Patient denies stress as a risk factor Recommendations Include:: Identification of stressors, and assessment of coping skills, Stress management techniques Stress Response Code:: Patient communicates acknowledgment
--- NOTE | 2022-10-08 16:11 | CHAPLAIN ---
Type of Pastoral Visit ___ Initial Visit ___ Follow-up Visit ___ On-call Visit ___ General Patient Visit ___ Spiritual Assessment ___ Family Conference ___ Bereavement ___ Rapid Response ___ Code Blue ___ Other (describe below) Pastoral Care Referral From ___ Patient ___ Family ___ Nurse ___ Physician ___ Ripshear Operator ___ Occupational Therapy Supervisor ___ Other (describe below) Sacrament/Intervention ___ Active listening ___ Anointing ___ Holiness ___ Bereavement ___ Communion ___ Rosi exploration ___ ___ Life review ___ Prayer ___ Reconciliation ___ Sacrament of Sick ___ Supportive presence ___ Wedding ___ Other (describe below) Pastoral Comments attempted visit twice; no patient or bed in the room; left a calling card
[2022-10-08] MEDS: Multivitamins,Therapeutic Tablet 1 TABLET PO (16:34)
[2022-10-08] MEDS: Empagliflozin 10 MG Tablet PO (16:34)
--- NOTE | 2022-10-08 21:00 | NURSING ---
Walked in room and down mcgrath and back to bed. Tolerated well. Site to rt groin checked no hematoma, bleeding, or bruising noted
[2022-10-08] MEDS: Allopurinol 300 MG Tablet PO (21:34)
[2022-10-09 03:00] VITALS: PULSE 79
[2022-10-09 04:18] VITALS: BP 119/80; PULSE 82; RESP 16; TEMP 36.9; O2SAT 94
--- NOTE | 2022-10-09 05:49 | EKG12_ITS ---
Test Reason : AM EKG Blood Pressure : / mmHG Vent. Rate : 080 BPM Atrial Rate : 080 BPM P-R Int : 164 ms QRS Dur : 084 ms QT Int : 372 ms P-R-T Axes : 044 -39 088 degrees QTc Int : 429 ms Normal sinus rhythm Left axis deviation Pulmonary disease pattern Moderate voltage criteria for LVH, may be normal variant ( R in aVL , [place] product ) Confirmed by CORINE RUIZ, KOJO ([id number]), design editor BRITTNI BACON ([id number]) on 10/09/2022 2:05:01 PM Referred By: MARISSA Confirmed By:KOJO POOL MD
[2022-10-09 07:16] VITALS: O2SAT 97
[2022-10-09 07:22] LABS: Hemoglobin 15.2 g/dL (13.0-16.5); Mean Corp Hgb Conc 33.8 g/dL (32-36); Mean Corpuscular Hgb 31.9 pg (27.0-32.0); Mean Corpuscular Volume 94.3 fL (80-94); Mean Platelet Vol. 11.2 fl (6.2-12.0); Platelet Count 201 K/mm3 (150-450); RBC Distribution Width CV 17.6 % (11.6-14.6); RBC Distribution Width SD 59.8 fl (35.1-43.9); Red Blood Count 4.77 M/mm3 (4.6-6.2)
[2022-10-09 08:09] LABS: ALB/GLOB Ratio 0.8 RATIO (0.9-2.4); AST(SGOT) 24 U/L (15-37); Alanine Aminotransfer ALT/SGPT 22 U/L (16-61); Albumin, Serum 3.5 g/dL (3.2-5.0); Alkaline Phosphatase 82 U/L (45-117); Anion Gap 11 (5-15); BUN 27 mg/dL (7-18); BUN/Creat Ratio 30.8 RATIO (10-20); Calcium,Total 8.6 mg/dL (8.5-10.1); Chloride 102 mmol/L (98-107); Creatinine, Serum 0.88 mg/dL (0.70-1.30); EST Glomerular Filtration Rate 88 mL/min (>60); Est Glom Filt Rate - Afr Amer 107 mL/min (>60); Estimated Creatinine Clearance 59.46 ml/min; Globulin 4.2 g/dL (2.2-4.2); Glucose 138 mg/dL (74-106); Potassium 4.4 mmol/L (3.5-5.1); Protein, Total 7.7 g/dL (6.4-8.2); Sodium Level 137 mmol/L (136-145)
[2022-10-09 09:27] VITALS: BP 127/89; PULSE 87; RESP 18; TEMP 36.6; O2SAT 96
[2022-10-09 09:30] VITALS: BP 127/89; PULSE 87
[2022-10-09] MEDS: Aspirin 81 MG TAB.CHEW PO (09:30)
[2022-10-09] MEDS: amLODIPine 10 MG Tablet PO (09:30)
[2022-10-09] MEDS: Metoprolol(XL)Succ 25 MG Tablet PO (09:30)
[2022-10-09] MEDS: Empagliflozin 10 MG Tablet PO (09:30)
[2022-10-09] MEDS: Multivitamins,Therapeutic Tablet 1 TABLET PO (09:30)
[2022-10-09] MEDS: TICAGRELOR 90 MG TABLET PO (09:31)
[2022-10-09 09:37] LABS: Pathologist Review Reviewed
--- NOTE | 2022-10-09 10:00 | EKG12_ITS ---
Test Reason : POST PCI Blood Pressure : / mmHG Vent. Rate : 081 BPM Atrial Rate : 081 BPM P-R Int : 196 ms QRS Dur : 088 ms QT Int : 376 ms P-R-T Axes : 049 -38 083 degrees QTc Int : 436 ms Sinus rhythm with marked sinus arrhythmia Left axis deviation Left ventricular hypertrophy with repolarization abnormality Abnormal ECG When compared with ECG of 08-OCT-2022 05:14, MANUAL COMPARISON REQUIRED, DATA IS UNCONFIRMED Confirmed by CORINE RUIZ, KOJO ([id number]), society editor BRITTNI BACON ([id number]) on 10/09/2022 9:12:18 AM Referred By: Loraine HERNANDEZ Confirmed By:KOJO POOL MD
--- NOTE | 2022-10-09 11:30 | CASEMGMT ---
RN CM Face to Face with patient for initial transition planning/care coordination assessment. RN CM introduced self and role at [facility]. Patient lying in bed, alert and oriented. Patient willing to participate in assessment and is able to answer all questions appropriately. Care providers, pharmacy, and demographics verified. Patient wishes to discharge home, denies need for home health at this time. Patient states he has no further needs or concerns at this time. CM to follow for discharge planning needs that may arise. PCP: Florecita Specialists: Margo Corral Pharmacy: [facility] Insurance: [employer]tag [facility] Prescription Benefit: yes Living Will/HPOA: yes, Ania Umana LNOK: Living Arrangements: Patient lives with in a single story condo with no steps to enter. 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 Transportation: self, DME/HHC: Patient has shower chair, grab bars, raised toilet, cane, and walker at home. Patient states he has had HHC in the past but could not recall agency name. Patient denies previous SNF. Disposition Plan: Patient to discharge home with family support and follow-up plans in place. Kailey JACINTO, RN, CM
--- NOTE | 2022-10-09 11:35 | DS.PCM_ITS ---
Providers Date of Admission: 10/07/22 Date of Discharge: 10/09/22 Primary Care Physician: Dr. Carin Bernabe, Consultations 10/06/22 23:17 Consult: Cardiology Routine Consulting Provider: Jessica Snyder Reason for Consult: NSTEMI EMERGENT Consult: No MD Notified: Yes Date Notified: 10/07/22 Time Notified: 06:49 Method of Notification: Text Reason For Visit: NSTEMI Diagnosis Discharge Diagnosis (1) Non-ST elevated myocardial infarction (non-STEMI): Status: Acute Code(s): I21.4 - Non-ST elevation (NSTEMI) myocardial infarction Plan #Nonstemi * does have a history of CAD s/p CABG and stents * currenlty on heparin drip * on aspirin, statin and metoprolol. * cardiology on board. For cardiac cath today * 2D echo ordered * #CAD s/p CABG: on aspirin, high intensity statin and metoprolol #Afib: currently rate controlled. Coumadin on hold as he is going for cardiac cath. On metoprolol #Type 2 diabetes mellitus * metformin and Jardiance on hold * ISS> Accuchecks ACHS * check A1c * #Hypertension: on metoprolol and amlodipine. Aldactone currently held DVT prophylaxis: already on heparin drip Medications at Discharge Home Medications allopurinol 300 mg tablet 300 mg PO QHS 10/06/22 amlodipine 10 mg tablet 10 mg PO DAILY 10/06/22 aspirin 81 mg capsule 81 mg PO DAILY 10/06/22 cinnamon bark 500 mg capsule (Cinnamon) 500 mg PO BID 10/06/22 coenzyme Q10 100 mg capsule (CoQ-10) 200 mg PO DAILY 10/06/22 empagliflozin 10 mg tablet (Jardiance) 10 mg PO DAILY 10/06/22 metoprolol succinate 25 mg tablet,extended release 24 hr 25 mg PO DAILY 10/06/22 multivitamin 1 tab PO DAILY 10/06/22 niacin 500 mg capsule 500 mg PO DAILY 10/06/22 omega-3 fatty acids 1,000 mg PO BID 10/06/22 red yeast rice 600 mg tablet 600 mg PO BID 10/06/22 spironolactone 50 mg tablet 50 mg PO DAILY 10/06/22 warfarin 4 mg tablet 4 mg PO QHS 10/06/22 clopidogrel 75 mg tablet (Plavix) 75 mg PO DAILY #30 tabs 10/09/22 Hospital Course Operations None Procedures 2-D Echocardiogram and Cardiac catheterization Summary of Care Provided Minutes Spent on Discharge: 47 Hospital Course: Patient is an 82-year-old male with a past medical history as outlined was admitted through the ED on 10/06/2022 with a complaint of chest pain which have been going on for about 1 day prior to admission. Chest pain was substernal and radiated to his left upper extremity. Chest x-ray showed minimal left basilar airspace disease with some atelectasis or scarring. EKG showed T wave inversions in lead I and aVL. Initial troponin was 131 but trended upwards to 1614. He was admitted and managed for non-STEMI. Cardiology was consulted. He had cardiac cath which resulted in drug-eluting stent placement to the PDA. He did have residual stenosis in the RPL which could not be crossed with the balloon and was to be treated medically. Patient was placed on p.o. aspirin, Plavix and Coumadin. Per cardiology, aspirin could be stopped in a month's time and he could continue with his Plavix and Coumadin. Was also placed on high intensity statin. He had 2D echo which showed EF of 60% with no evidence of diastolic dysfunction and mild aortic stenosis. He was discharged home on 10/09/2022 needs follow-up with his primary care doctor and follow-up with cardiology also. Patient seen and examined prior to discharge. He had no active complaints. States otherwise negative. Labs and vitals reviewed. Home medication reviewed and reconciled. Physical Exam Const alert, oriented x3 and no apparent distress General Appearance: cooperative and comfortable HEENT normocephalic, head/scalp atraumatic, hearing grossly normal bilaterally, moist oral mucous membranes and oropharynx normal Mouth: oral and palatal mucosa normal Eyes PERRL, EOMs intact bilaterally and conjunctivae normal Neck no lymphadenopathy, supple and no JVD Resp normal respiratory effort, no retractions, no use of accessory muscles and clear to auscultation bilaterally Cardio regular rate, regular rhythm, S1 normal heart sound, S2 normal heart sound and no murmurs GI normal to inspection, nondistended, normoactive bowel sounds, soft to palpation, non-tender and non-distended Extremity normal to inspection, full ROM and no clubbing, cyanosis or edema Skin no rashes or lesions noted Neuro oriented x3, CN's II-XII intact bilaterally, moves all extremities and no focal motor deficits Sensorium / Orientation: awake and alert Motor Exam: strength 5/5 throughout Psych affect normal Weight / BMI Weight Weight: 175 lb 14.862 oz Body Mass Index (BMI) 27.5 ABG / Lab / Microbiology Data Result Diagrams: 10/09/22 07:10 10/09/22 07:10 Laboratory: Laboratory Results - last 24 hr 10/06/22 19:55: Diff Path Review Reviewed 10/09/22 07:10: WBC 17.0 H, RBC 4.77, Hgb 15.2, Hct 45.0, MCV 94.3 H, MCH 31.9, MCHC 33.8, RDW Std Deviation 59.8 H, RDW Coeff of Aide 17.6 H, Plt Count 201, MPV 11.2 10/09/22 07:10: Sodium 137, Potassium 4.4, Chloride 102, Carbon Dioxide 24.0, Anion Gap 11, BUN 27 H, Creatinine 0.88, Estim Creat Clear Calc 59.46, Est GFR (MDRD) Af Amer 107, Est GFR (MDRD) Non-Af 88, BUN/Creatinine Ratio 30.8 H, Glucose 138 H, Calcium 8.6, Total Bilirubin 1.20 H, AST 24, ALT 22, Alkaline Phosphatase 82, Total Protein 7.7, Albumin 3.5, Globulin 4.2, Albumin/Globulin Ratio 0.8 L Radiography Diagnostic Testing: Radiology Impression Echocardiogram 10/07/22 00:04 Interpretation Summary The estimated ejection fraction is 60 %. No evidence for diastolic dysfunction. Trivial mitral valve insufficiency. Moderate diffuse aortic valve thickening. Mild aortic stenosis. Trivial aortic valve insufficiency. Ordering Physician: Cris Gimenez Referring Physician: CARIN BERNABE Performed By: Taniya Graham, MIKAYLA D/C Instructions Discharge Diet: Low fat / Low cholesterol Discharge Activity: Return to Normal Activity Weight Bearing Status: Weight bearing as tolerated Call your doctor if you observe: Fever of 101 or Higher, Shortness of breath, Dizziness, Swelling in the ankles, Chest pain and Increased palpitations (irregular heartbeat) Meaningful Use Info Meaningful Use Diagnoses (Choose all that apply): AMI AMI/Post PCI/Angioplasty Aspirin given w/in 24hrs of arrival?: Yes ASA at discharge?: Yes Antiplatelet Therapy at Discharge:: Yes Statins at discharge?: Yes Ran/ARB at discharge?: No Reason Ran/ARB not ordered:: Not indicated Beta Chad at discharge?: Yes Done w/ Acute CA measure.: Yes Documented LVEF (%): 60 Discharge Plan Admission Admit Date/Time: 10/07/22 09:52 Primary Reason for Your Visit: nonstemi Attending Provider: Moni Alfonso Primary Care Provider: Carin Bernabe Consulting Providers: Cris Gimenez ; Jessica Snyder ; Fransico Germain Instructions Patient Instructions: Heart Attack Dc, Heart Attack Meds Discharge Orders/Prescriptions Prescriptions: New clopidogrel [Plavix] 75 mg tablet 75 mg PO DAILY Qty: 30 2RF Continued amlodipine 10 mg tablet 10 mg PO DAILY Label Comments: TAKE 1 TABLET BY MOUTH EVERY DAY metoprolol succinate 25 mg tablet extended release 24 hr 25 mg PO DAILY spironolactone 50 mg tablet 50 mg PO DAILY multivitamin Tablet 1 tab PO DAILY warfarin 4 mg tablet 4 mg PO QHS Label Comments: TAKE 1 TABLET BY MOUTH EVERY DAY allopurinol 300 mg tablet 300 mg PO QHS Label Comments: TAKE 1 TABLET BY MOUTH EVERY DAY coenzyme Q10 [CoQ-10] 100 mg Capsule 200 mg PO DAILY omega-3 fatty acids Capsule 1,000 mg PO BID cinnamon bark [Cinnamon] 500 mg Capsule 500 mg PO BID red yeast rice 600 mg Tablet 600 mg PO BID Rx Instructions: give with meal/snack niacin 500 mg Capsule 500 mg PO DAILY Jardiance 10 mg Tablet 10 mg PO DAILY aspirin 81 mg Capsule 81 mg PO DAILY Referrals / Follow Up: Alan Noel MD [Med Staff - Active Staff] - Within 2 Weeks Carin Bernabe DO [Primary Care Provider] - Within 2 Weeks Disposition Disposition (needs filled in before D/C Order can be placed): Home, Self Care Charges/Coding Visit Charges Inpatient E&M: 20792 Disch Hosp >30min
[2022-10-09 12:05] LABS: Pathologist Review Reviewed
--- NOTE | 2022-10-09 13:28 | PCM.PN.CARD ---
Subjective Subjective Patient is doing well. He ambulated without any issues. No further anginal symptoms. Objective Data Vital Signs: Vital Signs Temp Pulse Resp BP Pulse Ox O2 Del Method 97.9 F 87 18 127/89 H 96 Room Air 10/09/22 09:27 10/09/22 09:30 10/09/22 09:27 10/09/22 09:30 10/09/22 09:27 10/09/22 09:27 Oxygen Delivery Method Room Air Weight: 175 lb 14.862 oz Body Mass Index (BMI) 27.5 Intake & Output: Intake and Output for Last 24 Hours 10/07/22 10/08/22 10/09/22 23:59 23:59 23:59 Intake Total 1700.82 / 1940.82 577.68 / 1377.68 1100 / 1100 Output Total 300 / 300 Balance 1700.82 / 1940.82 577.68 / 1077.68 800 / 800 Lab / Micro Data Result Diagrams: 10/09/22 07:10 10/09/22 07:10 Labs: Laboratory Results - last 24 hr 10/06/22 19:55: Diff Path Review Reviewed 10/08/22 06:05: Diff Path Review Reviewed 10/09/22 07:10: WBC 17.0 H, RBC 4.77, Hgb 15.2, Hct 45.0, MCV 94.3 H, MCH 31.9, MCHC 33.8, RDW Std Deviation 59.8 H, RDW Coeff of Aide 17.6 H, Plt Count 201, MPV 11.2 10/09/22 07:10: Sodium 137, Potassium 4.4, Chloride 102, Carbon Dioxide 24.0, Anion Gap 11, BUN 27 H, Creatinine 0.88, Estim Creat Clear Calc 59.46, Est GFR (MDRD) Af Amer 107, Est GFR (MDRD) Non-Af 88, BUN/Creatinine Ratio 30.8 H, Glucose 138 H, Calcium 8.6, Total Bilirubin 1.20 H, AST 24, ALT 22, Alkaline Phosphatase 82, Total Protein 7.7, Albumin 3.5, Globulin 4.2, Albumin/Globulin Ratio 0.8 L Cardiology Labs/Tests 10/09/22 07:10: WBC 17.0 H, RBC 4.77, Hgb 15.2, Hct 45.0, MCV 94.3 H, MCH 31.9, MCHC 33.8, Plt Count 201, MPV 11.2 10/09/22 07:10: Sodium 137, Potassium 4.4, Chloride 102, Carbon Dioxide 24.0, Anion Gap 11, BUN 27 H, Creatinine 0.88, Est GFR (MDRD) Af Amer 107, Est GFR (MDRD) Non-Af 88, BUN/Creatinine Ratio 30.8 H, Glucose 138 H, Calcium 8.6, Total Bilirubin 1.20 H Rhythm: EKG: ECHO: Stress Test: Cardiac Cath: PCI: CT Surgery: Holter monitor: EPS: PPM: CXR: Chest CT Scan: Radiography Diagnostic Testing: Radiology Impression Echocardiogram 10/07/22 00:04 Interpretation Summary The estimated ejection fraction is 60 %. No evidence for diastolic dysfunction. Trivial mitral valve insufficiency. Moderate diffuse aortic valve thickening. Mild aortic stenosis. Trivial aortic valve insufficiency. Ordering Physician: Cris Gimenez Referring Physician: CARIN ENRIQUEZ Performed By: Taniya Graham RDCS Physical Exam Const alert and oriented x3 HEENT normocephalic Eyes no scleral icterus Resp normal respiratory effort Cardio regular rate Extremity no pedal edema Psych mental status grossly normal Assessment & Plan Assessment/Plan (1) Non-ST elevated myocardial infarction (non-STEMI): PLAN: Status post stent to the PDA. 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 We will treat this medically at this time. Patient has no further anginal symptoms. Patient has been on Coumadin since his bypass surgery as he had a TIA at that time. I think will be reasonable to keep the patient on aspirin, Plavix and Coumadin at this time. After 1 month we can stop the aspirin and patient can be on Plavix and Coumadin. Okay to discharge home from a cardiac standpoint. 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
--- NOTE | 2022-10-09 14:27 | CHAPLAIN ---
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
[2022-10-09 14:30] VITALS: BP 101/73; PULSE 91; RESP 18; TEMP 36.7; O2SAT 94
--- NOTE | 2022-10-09 14:42 | PHA.DC.MC ---
Pharmacy Service has performed discharge medication reconciliation and counseling for this patient. 1. CLOPIDOGREL 75MG PO DAILY The patient's discharge medication list was reviewed for discrepancies and discrepancies were resolved. Home Medications allopurinol 300 mg tablet 300 mg PO QHS 10/06/22 amlodipine 10 mg tablet 10 mg PO DAILY 10/06/22 aspirin 81 mg capsule 81 mg PO DAILY 10/06/22 cinnamon bark 500 mg capsule (Cinnamon) 500 mg PO BID 10/06/22 coenzyme Q10 100 mg capsule (CoQ-10) 200 mg PO DAILY 10/06/22 empagliflozin 10 mg tablet (Jardiance) 10 mg PO DAILY 10/06/22 metoprolol succinate 25 mg tablet,extended release 24 hr 25 mg PO DAILY 10/06/22 multivitamin 1 tab PO DAILY 10/06/22 niacin 500 mg capsule 500 mg PO DAILY 10/06/22 omega-3 fatty acids 1,000 mg PO BID 10/06/22 red yeast rice 600 mg tablet 600 mg PO BID 10/06/22 spironolactone 50 mg tablet 50 mg PO DAILY 10/06/22 warfarin 4 mg tablet 4 mg PO QHS 10/06/22 clopidogrel 75 mg tablet (Plavix) 75 mg PO DAILY #30 tabs 10/09/22 The patient was counseled on the following discharge medications and changes in medications for homegoing were reviewed. The Reason for Use, instructions for use, and potential side effects were reviewed for all new medications. The patient's questions regarding all of their medications were answered. The patient was able to verbally demonstrate an understanding of their discharge medications.
== END 2022-10-09 15:24 | disposition home or self-care (01) | DRG 247 ==
LOC: ED 20:53 → PCU 21:07
PROVIDERS: Family Medicine; Specialist; Admitting Provider Internal Medicine; Emergency Provider Emergency Medicine; PCP Preventive Medicine Occupational Medicine; Visit Provider Student in an Organized Health Care Education/Training Program
DX: I21.4 Non-ST elevation (NSTEMI) myocardial infarction (principal); E11.9 Type 2 diabetes mellitus without complications; I48.0 Paroxysmal atrial fibrillation; E78.00 Pure hypercholesterolemia, unspecified; I25.10 Atherosclerotic heart disease of native coronary artery without angina pectoris; I10 Essential (primary) hypertension; Z66 Do not resuscitate; Z79.01 Long term (current) use of anticoagulants; Z79.82 Long term (current) use of aspirin; Z79.84 Long term (current) use of oral hypoglycemic drugs; Z79.899 Other long term (current) drug therapy; Z86.73 Personal history of transient ischemic attack (TIA), and cerebral infarction without residual deficits; Z95.5 Presence of coronary angioplasty implant and graft; Z95.1 Presence of aortocoronary bypass graft
CPT/HCPCS: 36415; 71045; 80048; 80053; 80076; 82962; 83036; 83880; 84484; 85025; 85027; 85610; 85730; 92928; 93005; 93306; 93455; 99152; 99153; 99285; C1874; J7040; Q9967; A4216; C1725; C1760; C1769; C1887; C9600; J2405